=== PATIENT | male | born 1990 | race Caucasian/White ===

== ENCOUNTER 2018-11-21 08:38 | Day surgery (SDC) | payer BC ==
[~2018-11-21] VITALS: Ht 177.8 cm; Wt 104.5 kg
[~2018-11-21 08:38] MED LIST: CEPHALEXIN500 M1 PO
[2018-11-21 09:23] LABS: COLLECTION METHOD CLEAN CATCH
[2018-11-21 09:30] LABS: HEMATOCRIT 43.8 % (42.0-52.0); HEMOGLOBIN 15.3 g/dl (13.5-18.0); MEAN CELL VOLUME 85 fl (80.0-100.0); MEAN CORPUSCULAR HEMOGLOBIN 30 pg (27.0-31.0); MEAN CORPUSCULAR HGB CONC 35 g/dl (33.0-37.0); MEAN PLATELET VOLUME 10.2 fl (7.4-10.4); PLATELET COUNT 237 K/mm3 (130-400); RED BLOOD COUNT 5.14 M/mm3 (4.20-5.60); REDCELL DISTRIBUTION WIDTH-CV 11.7 % (11.5-14.5)
[2018-11-21 09:32] LABS: PH 6 (5-8); SQUAMOUS EPITHELIAL None Seen /hpf; URINE APPEARANCE Clear; URINE BACTERIA None Seen /hpf; URINE BILIRUBIN Negative (NEGATIVE); URINE BLOOD 1+ (NEGATIVE); URINE COLOR Straw; URINE GLUCOSE Negative (NEGATIVE); URINE KETONE Negative (NEGATIVE); URINE LEUKOCYTE ESTERASE Negative (NEGATIVE); URINE NITRATE Negative (NEGATIVE); URINE PROTEIN(semi-quant) Negative (NEGATIVE); URINE RBC 0-2 /hpf; URINE UROBILINOGEN Negative (NEGATIVE)
[2018-11-21 09:39] LABS: ALBUMIN 4.6 gm/dL (3.5-5.0); BILIRUBIN,TOTAL 1.2 mg/dL (0.0-1.0); C-REACTIVE PROTEIN 4.6 mg/dL (0.0-0.9); CALCIUM 9.4 mg/dL (8.4-10.2); POTASSIUM 3.8 mmol/L (3.4-5.0); TOTAL PROTEIN 7.9 gm/dL (6.4-8.2)
[2018-11-21 10:04] LABS: BAND 6 % (0-10); EOSINOPHIL 1 % (0-4); LYMPHOCYTE 3 % (20.0-51.0); NEUTROPHILS 88 % (42.0-75.2)
[2018-11-21 10:05] LABS: PLATELET ESTIMATE NORMAL (NORMAL)
[2018-11-21 14:01] VITALS: BP 145/73; PULSE 96; TEMP 99.8
[2018-11-21 15:50] VITALS: BP 128/61; PULSE 82; TEMP 99.9
--- NOTE | 2018-11-21 15:50 | NUR ---
PT IS ALERT. RETURNS FROM PROCEDURE [place] [facility] WITH PACU STAFF. MONITORS APPLIED. VSS AND AT BASELINE. PT DENIES PAIN OR NAUSEA. REQUESTS PUDDING AND APPLE JUICE. CALL LIGHT IN REACH.
[2018-11-21] MEDS ORDERED: NORCO 325 MG-51 TAB PO (16:04)
[2018-11-21 16:05] VITALS: BP 138/59; PULSE 89
--- NOTE | 2018-11-21 16:05 | NUR ---
PT REMAINS ALERT. CONTINUES TO DENY PAIN OR NAUSEA. TOLERATES PUDDING AND APPLE JUICE WELL. CALL LIGHT IN REACH.
[2018-11-21 16:09] VITALS: TEMP 99.2
[2018-11-21 16:20] VITALS: BP 148/78; PULSE 80
--- NOTE | 2018-11-21 16:30 | NUR ---
PT AMBULATES TO AND FROM BATHROOM. ABLE TO VOID. CONTINUES TO DENY PAIN OR NAUSEA. PT DRESSES SELF ON ARRIVAL BACK TO ROOM. CALL LIGHT IN REACH. IV DC'D WITH CATH TIP INTACT.
== END 2018-11-21 16:45 | disposition home or self-care (01) ==
LOC: SDCO 08:38 → COL.ER 08:38 → EDSTATUS 14:00 → SDCO 16:45
PROVIDERS: Nurse Practitioner
DX: K35.80 Unspecified acute appendicitis (principal)
CPT/HCPCS: J1100; J1885; J2250; J2270; J2405; J2543; J2704; J3010; J7030; J7120; Q9967